=== PATIENT | female | born 1945 | race African-American/Black ===

== ENCOUNTER → 2019-02-13 | Day surgery (SDC) | payer BC, OTHER ==
[~2019-02-13] MED LIST: ALEN70TA3 PO; ASPI-630 PO; ATOR20TA58 PO; BIMA2.5D EACHEYE; BRIM5DRO2 OP; CHOL200027 PO; DORZ10DR6 EACHEYE; HYDROmorphone 2 MG/ML VIAL IV PRN; INSU100I13 SQ; INSU100I17 SQ; IV NORMAL SALINE 1000ML BAG 1,000 ML IV SCH; IV RINGERS,LACTATED 1000ML 1,000 ML IV SCH; LIDOCAINE 2% PF 5 ML VIAL. ONE; LOSA1TAB7 PO; METO-239 PO; MORPHINE SULFATE 2 MG/ML VIAL. IV PRN; MV-M1TAB8 PO; OMEP20CA5 PO; ONDANSETRON PF 4 MG/2 ML VIAL. IV PRN; PANCRELIPASE; PROCHLORPERAZINE 10 MG/2 ML VIAL. IV PRN; PROPOFOL 20 ML IV ONE; PROPOFOL 40 ML IV ONE; fentaNYL PF VIAL 100 MCG/2 ML VIAL IV PRN
[2019-02-13 10:30] VITALS: BP 118/67
--- NOTE | 2019-02-14 00:55 | CONS ---
DATE OF CONSULTATION: 02/13/2019 REFERRING PHYSICIAN: Dr. Geraldine Gonzalez. HISTORY OF PRESENT ILLNESS: A 73-year-old female with past medical history significant for osteoporosis, hyperlipidemia, diabetes, hypertension is seen for interval colonoscopy. She has had diverticulosis in the pannus. There is a family history of colon cancer with her sister who is . There has been no melena or hematochezia. No change in appetite. Weight and appetite are stable. She also noted increased heartburn with a hiatal hernia in the past. She has taken omeprazole 20 mg daily with modest improvement. With continued issues, she requests additional evaluation. PAST MEDICAL HISTORY: Osteoporosis, hyperlipidemia, hypertension, diabetes. ALLERGIES: None. MEDICATIONS: Include Fosamax, aspirin, atorvastatin, Lumigan, insulin, losartan, metoprolol, omeprazole, Creon. FAMILY AND SOCIAL HISTORY: Significant for colorectal cancer with her sister, diabetes in multiple family members, former smoker and drinker. PAST SURGICAL HISTORY: Significant for cataract surgery and tubal ligation. REVIEW OF SYSTEMS: Per records. PHYSICAL EXAMINATION: GENERAL: Reveals a well-nourished, well-developed female, who is alert and cooperative, in no acute distress. VITAL SIGNS: Temperature 98.4, pulse 86, respiratory rate 16. HEENT: Normocephalic and atraumatic head. Pupils and extraocular muscles are not tested. Sclerae anicteric. NECK: Supple. LUNGS: Clear. CARDIOVASCULAR: Reveals an S1, S2 without S3, S4 or appreciable murmur. ABDOMEN: Soft abdomen, normal bowel sounds without appreciable hepatosplenomegaly. EXTREMITIES: Reveals no cyanosis, clubbing, edema. IMPRESSION: 1. Colorectal screening with a family history of colon cancer is recommended at this time. Risks and benefits were discussed with the patient including risk of hemorrhage and perforation, who is willing to proceed. 2. Intractable reflux, hiatal hernia on PPI therapy. Differential includes Conrad's, achalasia, malignancy. We will recommend upper endoscopy. Risks and benefits were discussed with the patient. She is willing to proceed with upper endoscopy. JAYNE FERMIN MD DR: LIDIA/sage JOB#: [id number] / [id number]
--- NOTE | 2019-02-16 15:06 | PATHOLOGY ---
[facility] Accession Number: [id number] . 01 Material submitted: . esophagus - ESOPHAGEAL BIOPSIES . 01 Clinical history: . Colon screening, GERD, family history of colon cancer . 02 Diagnosis: Esophagus, biopsies: - Fragments of mildly hyperplastic squamous epithelium without significant inflammation. - No columnar epithelium identified. (SKM:rosie; 02/16/2019) QMS/02/16/2019 . 02 Electronically signed: . Bertram Paulino MD, Pathologist NPI- [id number] . 01 Gross description: . The specimen is received in formalin, labeled "Ej, Tona, esophageal biopsies" and consists of 4 translucent fragments of pink-nesbitt tissue measuring between 0.3 x 0.2 cm and 0.6 x 0.4 cm. They are entirely submitted in A1. (SDY; 02/13/2019) SYU/SYU . 02 Pathologist provided ICD-10: K21.9 . 02 CPT . 295452 Specimen Comment: A courtesy copy of this report has been sent to Specimen Comment: [phone], . Specimen Comment: Report sent to / DR HORN Performed at: 01 [facility] [address], [place] [id number] MD Dick Milner MD Phone: [phone] Performed at: 02 [facility] [address] [place], [place] [id number] MD Efrain Mckeon MD Phone: [phone]
== END | disposition home or self-care (01) ==
LOC: SURG 08:15
PROVIDERS: ATTEND Internal Medicine Gastroenterology
DX: Z12.11 Encounter for screening for malignant neoplasm of colon (principal); K57.30 Diverticulosis of large intestine without perforation or abscess without bleeding; K64.0 First degree hemorrhoids; K21.0 Gastro-esophageal reflux disease with esophagitis; K44.9 Diaphragmatic hernia without obstruction or gangrene; E78.5 Hyperlipidemia, unspecified; E11.9 Type 2 diabetes mellitus without complications; I10 Essential (primary) hypertension; M81.0 Age-related osteoporosis without current pathological fracture; Z79.82 Long term (current) use of aspirin; Z79.899 Other long term (current) drug therapy; Z79.84 Long term (current) use of oral hypoglycemic drugs; Z87.891 Personal history of nicotine dependence; Z72.89 Other problems related to lifestyle; Z98.51 Tubal ligation status; Z98.42 Cataract extraction status, left eye; Z98.41 Cataract extraction status, right eye; Z96.1 Presence of intraocular lens
CPT/HCPCS: 43239; 88305; G0121; J2001; J2704; 45378

== ENCOUNTER → 2019-05-27 | Outpatient (CLI) | payer BC ==
[2019-02-13 10:30] VITALS: BP 118/67
[~2019-05-27] MED LIST changes: -HYDROmorphone 2 MG/ML VIAL IV PRN; -IV NORMAL SALINE 1000ML BAG 1,000 ML IV SCH; -IV RINGERS,LACTATED 1000ML 1,000 ML IV SCH; -LIDOCAINE 2% PF 5 ML VIAL. ONE; -MORPHINE SULFATE 2 MG/ML VIAL. IV PRN; -ONDANSETRON PF 4 MG/2 ML VIAL. IV PRN; -PROCHLORPERAZINE 10 MG/2 ML VIAL. IV PRN; -PROPOFOL 20 ML IV ONE; -PROPOFOL 40 ML IV ONE; -fentaNYL PF VIAL 100 MCG/2 ML VIAL IV PRN
--- NOTE | 2019-05-27 13:28 | KCIC ---
Bone densitometry 05/27/2019 1:13 PM Indication: Post menopausal patient. Disorder of bone density and structure. Comparison Study: None available. Discussion: Bone Densitometry was performed with dual photon absorption of the lumbar spine and proximal left femur. Lumbar Spine: Bone average density is 0.915g/cm2 for L1-L4. T-Score is -1.2. Proximal left femur: Bone average density is 0.758g/cm2. T-Score is -1.5. IMPRESSION: Osteopenia. Note: Definitions established by the World Health Organization: Normal: T-score is -1.0 or above. Osteopenia: T-score is between -1.0 and -2.5. Osteoporosis: T-score is -2.5 or below. Electronically signed by: Len Stevens MD (05/27/2019 1:25 PM) [facility]
== END | disposition home or self-care (01) ==
LOC: KCIC DEXA 12:57
PROVIDERS: ATTEND Family Medicine
DX: M85.89 Other specified disorders of bone density and structure, multiple sites (principal)
CPT/HCPCS: 77080

== ENCOUNTER 2019-10-01 11:06 | Emergency (ER) | payer BC ==
[~2019-10-01] VITALS: Ht 157.5 cm; Wt 57.6 kg
[2019-10-01] MEDS ORDERED: fentaNYL PF VIAL 100 MCG/2 ML VIAL IVP ONE (12:15)
--- NOTE | 2019-10-01 12:25 | PHYS DOC ---
Past Medical History Past Medical History: Diabetes-Type II, High Cholesterol, Hypertension Additional Past Medical Histor: osteoporosis, CKD Past Surgical History: No Surgical History Additional Past Surgical Histo: unknown Alcohol Use: None Drug Use: None Adult General Chief Complaint Chief Complaint: HEADACHE HPI HPI Patient is a 73 year old female with history of hypertension, dyslipidemia, diabetes mellitus and chronic renal insufficiency who presents with complaining of headache. Patient complaining of left parietal/occipital headache for the last 3 days as a constant sharp pain and rated her pain 10 over 10 patient denies nausea and vomiting, neck pain, blurred vision, chest pain and shortness of breath, focal neuro deficit, fever and chills, history of previous episodes of headache or head injury. Patient states she took Tylenol without improvement of her pain. Patient seen at urgent care and was told to come to ER. Patient did not take her blood pressure medication today. Review of Systems Review of Systems Constitutional: Denies fever or chills [] Eyes: Denies change in visual acuity, redness, or eye pain [] HENT: Denies nasal congestion or sore throat [] Respiratory: Denies cough or shortness of breath [] Cardiovascular: No additional information not addressed in HPI [] GI: Denies abdominal pain, nausea, vomiting, bloody stools or diarrhea [] : Denies dysuria or hematuria [] Musculoskeletal: Denies back pain or joint pain [] Integument: Denies rash or skin lesions [] Neurologic: Reports headache, denies focal weakness or sensory changes [] Endocrine: Denies polyuria or polydipsia [] All other systems were reviewed and found to be within normal limits, except as documented in this note. Current Medications Current Medications Current Medications Medications (Trade) Dose Ordered Sig/Mary Start Time Stop Time Status Last Admin Dose Admin Fentanyl Citrate (Fentanyl 2ml Vial) 50 mcg 1X ONCE 10/01/19 12:15 10/01/19 12:16 DC 10/01/19 12:55 50 MCG Allergies Allergies Allergies Coded Allergies Type Severity Reaction Last Updated Verified No Known Drug Allergies 02/13/19 No Physical Exam Physical Exam Constitutional: Well developed, well nourished, mild distress, non-toxic appearance. [] HENT: Normocephalic, atraumatic, bilateral external ears normal, oropharynx moist, no oral exudates, nose normal. [] Eyes: PERRLA, EOMI, conjunctiva normal, no discharge. [] Neck: Normal range of motion, no tenderness, supple, no stridor. [] Cardiovascular:Heart rate regular rhythm, no murmur [] Lungs & Thorax: Bilateral breath sounds clear to auscultation [] Abdomen: Bowel sounds normal, soft, no tenderness, no masses, no pulsatile masses. [] Skin: Warm, dry, no erythema, no rash. [] Back: No tenderness, no CVA tenderness. [] Extremities: No tenderness, no cyanosis, no clubbing, ROM intact, no edema. [] Neurologic: Alert and oriented X 3, normal motor function, normal sensory function, no focal deficits noted. [] Psychologic: Affect normal, judgement normal, mood normal. [] Current Patient Data Vital Signs Vital Signs Date Time Temp Pulse Resp B/P (MAP) Pulse Ox O2 Delivery O2 Flow Rate FiO2 10/01/19 12:55 20 10/01/19 11:45 98.5 80 179/80 (113) 100 Room Air 98.5 Lab Values Laboratory Tests Test 10/01/19 13:10 White Blood Count 3.2 x10^3/uL (4.0-11.0) L Red Blood Count 4.31 x10^6/uL (3.50-5.40) Hemoglobin 12.7 g/dL (12.0-15.5) Hematocrit 38.9 % (36.0-47.0) Mean Corpuscular Volume 90 fL (79-100) Mean Corpuscular Hemoglobin 29 pg (25-35) Mean Corpuscular Hemoglobin Concent 33 g/dL (31-37) Red Cell Distribution Width 13.8 % (11.5-14.5) Platelet Count 196 x10^3/uL (140-400) Neutrophils (%) (Auto) 39 % (31-73) Lymphocytes (%) (Auto) 45 % (24-48) Monocytes (%) (Auto) 11 % (0-9) H Eosinophils (%) (Auto) 5 % (0-3) H Basophils (%) (Auto) 0 % (0-3) Neutrophils # (Auto) 1.2 x10^3/uL (1.8-7.7) L Lymphocytes # (Auto) 1.4 x10^3/uL (1.0-4.8) Monocytes # (Auto) 0.3 x10^3/uL (0.0-1.1) Eosinophils # (Auto) 0.2 x10^3/uL (0.0-0.7) Basophils # (Auto) 0.0 x10^3/uL (0.0-0.2) Sodium Level 143 mmol/L (136-145) Potassium Level 4.0 mmol/L (3.5-5.1) Chloride Level 111 mmol/L (98-107) H Carbon Dioxide Level 21 mmol/L (21-32) Anion Gap 11 (6-14) Blood Urea Nitrogen 14 mg/dL (7-20) Creatinine 1.3 mg/dL (0.6-1.0) H Estimated GFR (Cockcroft-Gault) 48.3 BUN/Creatinine Ratio 11 (6-20) Glucose Level 201 mg/dL (70-99) H Calcium Level 8.7 mg/dL (8.5-10.1) Total Bilirubin 0.5 mg/dL (0.2-1.0) Aspartate Amino Transferase (AST) 22 U/L (15-37) Alanine Aminotransferase (ALT) 25 U/L (14-59) Alkaline Phosphatase 78 U/L (46-116) Total Protein 7.5 g/dL (6.4-8.2) Albumin 3.9 g/dL (3.4-5.0) Albumin/Globulin Ratio 1.1 (1.0-1.7) Laboratory Tests 10/01/19 13:10 Laboratory Tests 10/01/19 13:10 EKG EKG [] Radiology/Procedures Radiology/Procedures [][facility] [address] [place] [address] IMAGING REPORT Signed PATIENT: SHIRLEY TORRES ACCOUNT: [id number] : 1945 LOCATION: ER AGE: 73 SEX: F EXAM STATUS: REG ER ORD. PHYSICIAN: JUDY CHOE MD REASON: headache without history of headache PROCEDURE: CT HEAD WO CONTRAST CT HEAD WO CONTRAST Clinical indications: Headache. COMPARISON: March 08, 2014. Technique: Noncontrast axial cross sectional scanning of the head was performed. PQRS compliance Statement One or more of the following individualized dose reduction techniques were utilized for this study: 1. Automated exposure control 2. Adjustment of the mA and/or kV according to patient size 3. Use of iterative reconstruction technique Findings: No acute intracranial hemorrhage or midline shift or mass-effect or hydrocephalus or extra-axial fluid collection is seen. No focal hypodense area or sulci effacement is seen to indicate an acute infarct or edema radiographically. No skull fracture or pneumocephalus is seen. An old fracture of the right orbital floor is evident. No opacification of the mastoid sinuses or the middle ear cavities or the paranasal sinuses is seen. The maxillary sinuses are not completely seen in this study. Impression: No acute intracranial abnormality is seen. Electronically signed by: Navneet Quinteros MD (10/01/2019 12:57 PM) [facility] DICTATED and SIGNED BY: NAVNEET QUINTEROS MD DATE: 10/01/19 1257 Course & Med Decision Making Course & Med Decision Making Pertinent Labs and Imaging studies reviewed. (See chart for details) I've spoken with the patient and/or caregivers. I've explained the patient's condition, diagnosis and treatment plan based on information available to me at this time. I've answered the patient's and/or caregivers questions and addressed any concerns. The patient and/or caregivers have a good understanding the patient's diagnosis, condition and treatment plan as can be expected at this point. Vital signs have been stabilized. The patient's condition is stable for discharge from the emergency department. The patient will pursue further outpatient evaluation with her primary care provider or other designated consulting physician as outlined in the discharge instructions. Patient and/or caregivers are agreeable to this plan of care and follow-up instructions have been explained in detail. The patient and/or caregivers have received these instructions in written format and expressed understanding of these discharge instructions. The patient and her caregivers are aware that if any significant change in condition or worsening of symptoms should prompt him to immediately return to this of the closest emergency depart ment. If an emergent department is not readily available I would encourage him to call 911. Jesus Disclaimer Jesus Disclaimer This electronic medical record was generated, in whole or in part, using a voice recognition dictation system. Departure Departure Impression: Primary Impression: Headache Additional Impressions: Accelerated hypertension Renal insufficiency Hyperglycemia Leukopenia Disposition: HOME, SELF-CARE (@1350) Condition: IMPROVED Referrals: YENI HORN MD (PCP) Patient Instructions: General Headache Without Cause Additional Instructions: Drink plenty of liquids Follow-up with your primary care physician in 3-5 days Return to ER if not getting better Scripts Acetaminophen With Codeine (TYLENOL WITH CODEINE #3 TABLET) 1 Each Tablet 1 TAB PO PRN Q6HRS PRN for PAIN, #10 TAB Prov: JUDY CHOE MD 10/01/19 Problem Qualifiers Primary Impression: Headache Headache type: unspecified Headache chronicity pattern: unspecified pattern Intractability: not intractable Qualified Codes: R51 - Headache Additional Impressions: Leukopenia Leukopenia type: unspecified Qualified Codes: D72.819 - Decreased white blood cell count, unspecified JUDY CHOE MD Oct 01, 2019 12:25
--- NOTE | 2019-10-01 13:00 | RAD ---
CT HEAD WO CONTRAST Clinical indications: Headache. COMPARISON: March 08, 2014. Technique: Noncontrast axial cross sectional scanning of the head was performed. PQRS compliance Statement One or more of the following individualized dose reduction techniques were utilized for this study: 1. Automated exposure control 2. Adjustment of the mA and/or kV according to patient size 3. Use of iterative reconstruction technique Findings: No acute intracranial hemorrhage or midline shift or mass-effect or hydrocephalus or extra-axial fluid collection is seen. No focal hypodense area or sulci effacement is seen to indicate an acute infarct or edema radiographically. No skull fracture or pneumocephalus is seen. An old fracture of the right orbital floor is evident. No opacification of the mastoid sinuses or the middle ear cavities or the paranasal sinuses is seen. The maxillary sinuses are not completely seen in this study. Impression: No acute intracranial abnormality is seen. Electronically signed by: Guillermo Quinteros MD (10/01/2019 12:57 PM) [facility]
[2019-10-01 13:15] LABS: BASO % 0 % (0-3); EOS # 0.2 x10^3/uL (0.0-0.7); EOS % 5 % (0-3); HEMATOCRIT 38.9 % (36.0-47.0); HEMOGLOBIN 12.7 g/dL (12.0-15.5); LYMPH # 1.4 x10^3/uL (1.0-4.8); LYMPH % 45 % (24-48); MEAN CORPUSCULAR HEMOGLOBIN 29 pg (25-35); MEAN CORPUSCULAR HGB CONC 33 g/dL (31-37); MEAN CORPUSCULAR VOLUME 90 fL (79-100); MONO # 0.3 x10^3/uL (0.0-1.1); MONO % 11 % (0-9); NEUT # 1.2 x10^3/uL (1.8-7.7); NEUT % 39 % (31-73); PLATELET COUNT 196 x10^3/uL (140-400); RED BLOOD COUNT 4.31 x10^6/uL (3.50-5.40); RED CELL DISTRIBUTION WIDTH 13.8 % (11.5-14.5); WHITE BLOOD COUNT 3.2 x10^3/uL (4.0-11.0)
[2019-10-01 13:29] LABS: CALCIUM 8.7 mg/dL (8.5-10.1); CREATININE 1.3 mg/dL (0.6-1.0); GFR 48.3
[2019-10-01 13:33] LABS: ALBUMIN 3.9 g/dL (3.4-5.0); ALBUMIN/GLOBULIN RATIO 1.1 (1.0-1.7); TOTAL BILIRUBIN 0.5 mg/dL (0.2-1.0); TOTAL PROTEIN 7.5 g/dL (6.4-8.2)
[2019-10-01 13:44] VITALS: BP 148/72
[2019-10-01] MEDS ORDERED: ACET-704 PO ×2 (13:51→13:58)
== END 2019-10-01 14:02 | disposition home or self-care (01) ==
LOC: ER 11:06
DX: R51 Headache (principal); I10 Essential (primary) hypertension; D72.819 Decreased white blood cell count, unspecified; E78.00 Pure hypercholesterolemia, unspecified; E11.65 Type 2 diabetes mellitus with hyperglycemia; E11.22 Type 2 diabetes mellitus with diabetic chronic kidney disease; I12.9 Hypertensive chronic kidney disease with stage 1 through stage 4 chronic kidney disease, or unspecified chronic kidney disease; N18.9 Chronic kidney disease, unspecified
CPT/HCPCS: 36415; 70450; 80053; 85025; 96374; 99285; J3010

== ENCOUNTER → 2019-10-16 | Outpatient (CLI) | payer BC ==
[2019-10-01 13:44] VITALS: BP 148/72
[~2019-10-16] MED LIST changes: +ACET-704 PO
--- NOTE | 2019-10-16 15:06 | KCIC ---
MRI Brain without contrast History: Intractable headache, new onset right-sided headaches for about 3 weeks Technique: Multiplanar, multisequential noncontrast MR imaging was performed of the brain. Comparison: July 05, 2011 Findings: There is no evidence of recent infarct or cytotoxic edema. Ventricular size is stable, proportionate to the sulcal spaces. There is mild supratentorial involutional change somewhat greater of parietal lobes.There is no significant midline shift, intraaxial mass effect, or focal abnormal extra-axial fluid collection. There is again scattered overall mild T2 and FLAIR hyperintense abnormality of the supratentorial parenchyma bilaterally overall fairly similar. There is no significant hemosiderin deposition of the brain parenchyma. There is preservation of the major intracranial flow-voids at the skull base. The mastoid air cells are aerated. The cerebellar tonsils are normal in location. There is no significant abnormality of the pineal gland or pituitary gland. There is [id number] left and mild right ethmoid air cell mucosal thickening. There has been lens surgery bilaterally. There is preserved marrow signal of the clivus. Impression: 1. There is no evidence of recent infarct or new intracranial mass effect. There is again scattered overall mild T2 and FLAIR hyperintense signal abnormality of the supratentorial parenchyma bilaterally. Nonspecific findings are more commonly due to chronic microvascular ischemic disease in a patient this age. There is mild supratentorial involutional change somewhat greater of the parietal lobes. Electronically signed by: Lavelle Rdz MD (10/16/2019 3:03 PM) [id number]
== END | disposition home or self-care (01) ==
LOC: KCIC MRI 11:35
PROVIDERS: ATTEND Family Medicine
DX: R51 Headache (principal); J34.89 Other specified disorders of nose and nasal sinuses
CPT/HCPCS: 70551

== ENCOUNTER → 2020-12-09 | Outpatient (CLI) | payer MEDICARE ==
[~2020-12-09] MED LIST changes: +CONTRAST GIVEN. MC PRN; +IOHEXOL 240 MG/ML 50ML VIAL. PO ONE; +IOHEXOL 300 MG/ML 100ML VIAL. IV ONE
--- NOTE | 2020-12-09 15:20 | KCIC ---
CT PELVIS W Indication: Reason: Sacral,anal pain, hurts to sit, since September 2020 / Spl. Instructions: 89mL Omni 300 / History: No recent colonoscopy per pt. Technique: CT scan of the pelvis was performed following the administration of oral and nonionic intravenous contrast. One or more of the following dose reduction techniques were utilized: *Automated exposure control (AEC) *Adjustment of mA and/or kV according to patient size *Use of iterative reconstruction technique *CT scan done according to ALARA, or ALARA/IMAGE GENTLY FINDINGS: There is suggestion of mild mural thickening involving the distal rectum which is nonspecific. Visualized loops of bowel in the pelvis are otherwise within normal limits. Urinary bladder is normal in appearance. No pelvic lymphadenopathy or ascites is seen. Mild vascular calcifications are noted. Osseous structures are intact with mild degenerative changes noted. No displaced acute fracture is seen. Nondisplaced fractures may be occult on CT imaging. IMPRESSION: There is suggestion of mild mural thickening involving the distal rectum which is nonspecific but may represent proctitis. Neoplastic considerations are not excluded however. MTDD
== END ==
LOC: KCIC CT 09:16
PROVIDERS: ATTEND Internal Medicine Gastroenterology
DX: M53.3 Sacrococcygeal disorders, not elsewhere classified (principal); K62.89 Other specified diseases of anus and rectum; I70.90 Unspecified atherosclerosis; M16.9 Osteoarthritis of hip, unspecified
CPT/HCPCS: 72193; 82565; Q9966; Q9967

== ENCOUNTER → 2020-12-21 | Outpatient (CLI) | payer MEDICARE ==
[~2020-12-21] MED LIST changes: -CONTRAST GIVEN. MC PRN; -IOHEXOL 240 MG/ML 50ML VIAL. PO ONE; -IOHEXOL 300 MG/ML 100ML VIAL. IV ONE
== END ==
LOC: LAB 11:05
PROVIDERS: ATTEND Internal Medicine Gastroenterology
DX: Z01.812 Encounter for preprocedural laboratory examination (principal); R93.5 Abnormal findings on diagnostic imaging of other abdominal regions, including retroperitoneum; Z20.822 Contact with and (suspected) exposure to COVID-19
CPT/HCPCS: U0003

== ENCOUNTER → 2020-12-23 | Day surgery (SDC) | payer MEDICARE ==
[~2020-12-23] MED LIST changes: +AMLO-187 PO; +ATOR10TA60 PO; +BRIN10DR EACHEYE; +FAMO40TA4 PO; +HYDROmorphone 2 MG/ML VIAL IVP PRN; +HYPR10GE OP; +INSU100I30 SQ; +INSU200I SQ; +IV NORMAL SALINE 1000ML BAG 1,000 ML IV ONE; +IV RINGERS,LACTATED 1000ML 1,000 ML IV SCH; +LATA2.5D2 OU; +LIDOCAINE 2% PF 5 ML VIAL. ONE; +LIPA1TAB4 PO; +METO100T5 PO; +MORPHINE SULFATE 2 MG/ML VIAL. IVP PRN; +PRED5DRO20 RIGHTEYE; +PROCHLORPERAZINE 10 MG/2 ML VIAL. IVP PRN; +PROPOFOL 10 MG/ML (20ML) VIAL. IV ONE; +VENTOLIN HFA18 GM INH; +fentaNYL PF VIAL 100 MCG/2 ML VIAL IVP PRN
[2020-12-23 10:05] VITALS: BP 145/74
== END | disposition home or self-care (01) ==
LOC: SURG 07:54
PROVIDERS: ATTEND Internal Medicine Gastroenterology
DX: R10.9 Unspecified abdominal pain (principal); R93.3 Abnormal findings on diagnostic imaging of other parts of digestive tract; K64.0 First degree hemorrhoids; I25.10 Atherosclerotic heart disease of native coronary artery without angina pectoris; E78.00 Pure hypercholesterolemia, unspecified; J45.909 Unspecified asthma, uncomplicated; I12.9 Hypertensive chronic kidney disease with stage 1 through stage 4 chronic kidney disease, or unspecified chronic kidney disease; N18.9 Chronic kidney disease, unspecified; K21.9 Gastro-esophageal reflux disease without esophagitis; E11.22 Type 2 diabetes mellitus with diabetic chronic kidney disease; M81.0 Age-related osteoporosis without current pathological fracture; F41.9 Anxiety disorder, unspecified; Z98.51 Tubal ligation status; Z98.890 Other specified postprocedural states; Z87.891 Personal history of nicotine dependence; Z79.82 Long term (current) use of aspirin; Z79.4 Long term (current) use of insulin; Z79.899 Other long term (current) drug therapy
CPT/HCPCS: 45378; J2704

== ENCOUNTER → 2021-01-05 | Outpatient (CLI) | payer MEDICARE ==
[2020-12-23 10:05] VITALS: BP 145/74
[~2021-01-05] MED LIST changes: -AMLO-187 PO; -ATOR10TA60 PO; -BRIN10DR EACHEYE; -FAMO40TA4 PO; -HYDROmorphone 2 MG/ML VIAL IVP PRN; -HYPR10GE OP; -INSU100I30 SQ; -INSU200I SQ; -IV NORMAL SALINE 1000ML BAG 1,000 ML IV ONE; -IV RINGERS,LACTATED 1000ML 1,000 ML IV SCH; -LATA2.5D2 OU; -LIDOCAINE 2% PF 5 ML VIAL. ONE; -LIPA1TAB4 PO; -METO100T5 PO; -MORPHINE SULFATE 2 MG/ML VIAL. IVP PRN; -PRED5DRO20 RIGHTEYE; -PROCHLORPERAZINE 10 MG/2 ML VIAL. IVP PRN; -PROPOFOL 10 MG/ML (20ML) VIAL. IV ONE; -VENTOLIN HFA18 GM INH; -fentaNYL PF VIAL 100 MCG/2 ML VIAL IVP PRN
--- NOTE | 2021-01-05 13:34 | KCIC ---
EXAM: Sacrum and coccyx, 3 views. HISTORY: Coccydynia. COMPARISON: None. FINDINGS: 3 views of the sacrum and coccyx are obtained. There is no fracture, dislocation or subluxa tion. There is degenerative subchondral sclerosis involving the sacroiliac joints. The pubis symphysi s is intact. There is a suspected phlebolith overlying the right hemipelvis. IMPRESSION: No acute osseous finding. Electronically signed by: Emelina Carmen MD (01/05/2021 1:32 PM) [id number]
== END ==
LOC: KCIC 13:01
PROVIDERS: ATTEND Family Medicine
DX: M46.1 Sacroiliitis, not elsewhere classified (principal); I87.8 Other specified disorders of veins
CPT/HCPCS: 72220

== ENCOUNTER → 2021-03-09 | Outpatient (CLI) | payer MEDICARE ==
[2020-12-23 10:05] VITALS: BP 145/74
[~2021-03-09] MED LIST changes: +AMLO-187 PO; +ATOR10TA60 PO; +BRIN10DR EACHEYE; +FAMO40TA4 PO; +HYPR10GE OP; +INSU100I30 SQ; +INSU200I SQ; +LATA2.5D2 OU; +LIPA1TAB4 PO; +METO100T5 PO; +PRED5DRO20 RIGHTEYE; +VENTOLIN HFA18 GM INH
--- NOTE | 2021-03-09 12:12 | PDOC1 ---
INITIAL PAIN CONSULT DATE OF SERVICE: DOS: DATE: 03/09/21 TIME: 12:02 CHIEF COMPLAINT: Chief Complaint: Tailbone pain HISTORY OF PRESENT ILLNESS: 75-year-old female presents history of pain in the tailbone after fall in August 2020 patient reports she lost consciousness is not sure how she fell but a few days after the fall pain began to increase in her tailbone when she was sitting and standing and changing positions and has been waking her from sleep patient reports is at times gotten slightly worse especially with sitting and putting pressure on it patient reports is better when she is standing and walking but still present much worse with sitting for more than about 5 to 10 minutes riding in the car however is not as uncomfortable but it slightly harder surface chairs and more upright positions tend to exacerbate the pain as well. Patient reports he finds her self shifting from right side to left side to try to get the pain off of her tailbone and sacrum when she is sitting. Patient reports is generally better with laying down generally is not awaken her from sleep at night does not affect her bowel bladder control or ability to walk. Patient has had some therapy in the past and is doing some stretching and strength exercises from this but is not relieving the pain in the tailbone itself. Patient been taking Tylenol [id number] as she is not taking NSAIDs on the basis of her nuclear unit operator advice secondary to her diabetes. Patient reports has not had any other treatments as far as chiropractic treatments or interventional treatments but is still doing exercise daily trying to stretch the tailbone area. Patient reports also she is not using a donut to sit on and we recommended this today to her as well. Patient rates her disability rating 0-10 10 being the worst is a 5 with him home responsibilities and self-care 7 with recreation social activity 7 with life support activities. Patient scribes pain is throbbing and aching again worse with sitting and with pressure on the tailbone itself. Patient did have plain films of the sacrum and coccyx showing no osseous acute findings no fracture dislocation or subluxation. PAST MEDICAL HISTORY: PMH: Diabetes, hypertension, arthritis, shortness of breath PREVIOUS SURGERIES: Past Surgical Hx: Surgery for lung collapse in the 1970s CURRENT MEDICATIONS: Current Meds: Active Scripts Medications Dose Route/Sig Max Daily Dose Days Date Category Dose Instructions Tresiba Flextouch U-100 (Insulin Degludec) 100 Unit/1 Ml Insuln.pen 16 Unit SQ DAILY08 03/09/21 Reported Prednisolone Acet 1% Eye Drop (Prednisolone Acetate/Pf) 5 Ml Drops.susp 1 Drop RIGHTEYE QID 30 03/09/21 Reported Systane Gel (Hypromellose) 10 Gm Gel..gram. 0.25 Inch OP PRN Q4HRS PRN 03/09/21 Reported Toprol Xl (Metoprolol Succinate) 100 Mg Tab.er.24h 1 Tab PO DAILY 30 03/09/21 Reported Xalatan (Latanoprost) 2.5 Ml Drops 1 Drop OU QHS 03/09/21 Reported Humalog Kwikpen (Insulin Lispro) 200 Unit/1 Ml Insuln.pen 1 Unit SQ TIDAC MDD 30 units 03/09/21 Reported Take 8 units plus sliding scale with breakfast Take 6 units plus sliding scale with lunch Take 8 units plus sliding scale with dinner Famotidine 40 Mg Tablet 40 Mg PO DAILY 03/09/21 Reported Viokace 20,880-78,300 Units Tb (Lipase/Protease/Amylase) 1 Each Tablet 2 Tab PO DAILY 30 03/09/21 Reported Combigan Eye Drops (Brimonidine Tartrate/Timolol) 5 Ml Drops 5 Ml OP BID 03/09/21 Reported Azopt (Brinzolamide) 10 Ml Drops.susp 1 Drop EACHEYE TID 03/09/21 Reported Atorvastatin Calcium 10 Mg Tablet 1 Tab PO DAILY 03/09/21 Reported Amlodipine Besylate 10 Mg Tablet 10 Mg PO DAILY 03/09/21 Reported Ventolin Hfa Inhaler (Albuterol Sulfate) 18 Gm Hfa.aer.ad 2 Puff INH Q4HRS PRN 03/09/21 Reported [creon 2476-120 BID] 11/24/14 Reported Aspirin 81 Mg Tab.chew 1 Tab PO DAILY 11/24/14 Reported ALLERGIES; Allergies: Coded Allergies: No Known Drug Allergies (Unverified , 12/23/20) FAMILY HISTORY: Family Hx: Diabetes and cancers SOCIAL HISTORY: Social Hx: Patient does not mike alcohol does not smoke or use any illegal illicit or recreational drugs is lives locally in [facility] and reports that she is retired. REVIEW OF SYSTEMS: ROS: Positive for those items mentioned in history of present illness, all systems are reviewed, otherwise negative ,and are complete full and well-documented on patient's chart. PHYSICAL EXAM: VS: Blood pressure is 147/70 pulse 68 respirations 18 temperature 98.0 F height is 5 feet 3 inches weight is 155 pounds PE: PHYSICAL EXAMINATION: GENERAL: The patient is awake, alert, oriented, appropriate, very pleasant demeanor HEENT: Shows normocephalic, atraumatic. Extraocular movements are intact and symmetrical. Oral cavity: Mucous membranes moist and pink. NECK: Shows anterior throat supple without palpable lymphadenopathy noted. Swallow reflex symmetrical. CHEST: Shows normal on inspection. Breath sounds are clear bilaterally, distant but no rales rhonchi wheezes auscultated. HEART: Shows S1, S2 clear. No murmurs auscultated. ABDOMEN: Soft, nontender, nondistended, obese. No palpable organomegaly is noted. No rebound or guarding demonstrated. BACK: Shows spine grossly in the midline. Normal-appearing cervical lordotic curvature. There is increased thoracic kyphosis, some flattening of the lumbar lordotic curvature. Lumbar paraspinous muscles show symmetrical on inspection, on palpation shows some moderate tenderness diffusely throughout the upper, m iddle and lower distribution of the paraspinous muscles bilaterally and also into the lower thoracic paraspinous musculature, firm and tender, but without specific trigger points, without radiation of pain. The patient has good rotational motion of the lumbar spine, both laterally as well as extension and flexion without significant difficulty. Palpation of the sacrum shows signi ficant tenderness the inferior aspect of the sacrum and the sacrococcygeal ligament very tender to palpation also over the coccyx itself without any obvious displacement but significantly tender with palpation without radiation. EXTREMITIES: Lower extremities show deep tendon reflexes 2+ in the patellar and tendo calcaneus tendons. Motor exam is 5 on a scale of 5 with right dorsif lexion, extension, quadriceps and hamstring flexion and 5/5 on the left. Peripheral pulses are 1+ posterior tibial. No peripheral edema is noted bilaterally. Lower extremities are warm and dry to touch, equal in color and appearance. Straight leg raise noted to be negative bilaterally. Gaenslen's and Angelo's maneuvers are negative bilaterally as well. The patient is able to stand, has difficulty with standing from a seated position with significant pain reported in the sacrum and coccyx once standing however pain is decreased to moderate extent. SKIN: Shows warm and dry, good turgor. No edema. No sores, rashes or bruising throughout. IMPRESSION: Impression: 75-year-old female with approximate 7-month history pain inferior aspect of the sacrum and coccyx consistent with coccydynia. Diabetes Hypertension Arthritis Plan: Options were discussed with the patient including continued therapies conservative medical management and interventional techniques. Patient would li ke to pursue interventional techniques as she is doing some stretching strength exercises already without significant improvement and is been taking Tylenol [id number] without significant improvement as well. Patient is unable to take NSAIDs secondary to her nuclear unit operator advice regarding her diabetes. We discussed a sacrococcygeal ligament injection using description as well as anatomical models to describe the procedure. Patient will wait for preauthorization with her insurance provider once this is obtained we will plan on sacrococcygeal ligament injection with fluoroscopic guidance. Meantime recommend patient getting a donut to sit on and try to support some of the pressure off of the coccyx itself. Patient understands and agrees. VANDANA DYSON MD March 09, 2021 12:12
== END | disposition home or self-care (01) ==
LOC: PNCL 10:31
PROVIDERS: ATTEND Anesthesiology
DX: M53.3 Sacrococcygeal disorders, not elsewhere classified (principal); I10 Essential (primary) hypertension; M19.90 Unspecified osteoarthritis, unspecified site; E78.00 Pure hypercholesterolemia, unspecified; I25.10 Atherosclerotic heart disease of native coronary artery without angina pectoris; I12.9 Hypertensive chronic kidney disease with stage 1 through stage 4 chronic kidney disease, or unspecified chronic kidney disease; E11.22 Type 2 diabetes mellitus with diabetic chronic kidney disease; N18.30 Chronic kidney disease, stage 3 unspecified; J45.909 Unspecified asthma, uncomplicated; K21.9 Gastro-esophageal reflux disease without esophagitis; Z98.51 Tubal ligation status; Z98.890 Other specified postprocedural states; Z79.82 Long term (current) use of aspirin; Z79.4 Long term (current) use of insulin; Z79.899 Other long term (current) drug therapy
CPT/HCPCS: G0463

== ENCOUNTER → 2021-03-23 | Outpatient (CLI) | payer MEDICARE ==
[2020-12-23 10:05] VITALS: BP 145/74
[~2021-03-23] MED LIST changes: +BUPIVACAINE MPF 0.25% 10 ML VIAL. ONE; +methylPREDNISolone ACETATE 40 MG/ML VIAL. ONE
--- NOTE | 2021-03-23 10:31 | PDOC ---
Progress Note - Pain Clinic Date of Service: DOS: DATE: 03/23/21 TIME: Diagnosis: Dx: Coccydynia History or Present Illness: HPI: 75-year-old female for follow-up status post initial evaluation preauthorization for sacrococcygeal ligament injection. Patient reports still significant pain in the tailbone and the coccyx mostly with sitting changing positions also some with standing and walking. Patient reports no significant decrease in pain at this time and she is waiting for preauthorization is obtained that now with her return provider like to proceed. Patient reports pain is aching and severe in the tailbone itself with sitting also changing positions patient rates as a 10 on scale 10 is worst average and least over the past week is a 10 today patient reports no new motor or sensory deficits no new bowel or bladder constitutional complaints. Physical Exam: VS: Blood pressure is 134/69 pulse 76 respirations 18 temperature 98.5 F weight is 150 pounds PE: PHYSICAL EXAMINATION: GENERAL: The patient is awake, alert, oriented, appropriate, very pleasant demeanor HEENT: Shows normocephalic, atraumatic. Extraocular movements are intact and symmetrical. Oral cavity: Mucous membranes moist and pink. NECK: Shows anterior throat supple without palpable lymphadenopathy noted. Swallow reflex symmetrical. CHEST: Shows normal on inspection. Breath sounds are clear bilaterally. HEART: Shows S1, S2 clear. No murmurs auscultated. ABDOMEN: Soft, nontender, nondistended, obese. No palpable organomegaly is noted. BACK: Shows spine grossly in the midline. Normal-appearing cervical lordotic curvature. There is slightly increased thoracic kyphosis, some minor flattening of the lumbar lordotic curvature. Lumbar paraspinous muscles show symmetrical on inspection, on palpation shows some moderate tenderness diffusely throughout the upper, middle and lower distribution of the paraspinous muscles, but without specific trigger points, without radiation of pain. The patient has good rotational motion of the lumbar spine, both laterally as well as extension and flexion without significant difficulty. EXTREMITIES: Lower extremities show deep tendon reflexes 2+ in the patellar and tendo calcaneus tendons. Motor exam is 5 on a scale of 5 with right dorsiflexion, extension, quadriceps and hamstring flexion and 5/5 on the left. Peripheral pulses are 1+ posterior tibial. No peripheral edema is noted bilaterally. Lower extremities are warm and dry to touch, equal in color and appearance. Patient is sacrum and coccyx shows significant tenderness over the sacrococcygeal junction with direct palpation even moderate palpation is significantly tender with the patient. Patient shows no radiation of pain however with palpation. SKIN: Shows warm and dry, good turgor. No edema. No sores, rashes or bruising throughout. Procedure: Procedure: Options discussed with the patient. Patient chart was reviewed as her current medication regimen updated current review of systems updated today as well. We will proceed with sacrococcygeal ligament injection today with fluoroscopic guidance. Risk were discussed including but not limited to bleeding infection possibility of intravascular injection sequelae spread local anesthetic numbness side effects steroid medication portals regarding pain control. Patient understands and wishes to proceed. Patient will return to clinic in approximate 2 weeks for follow-up, was counseled as to return appointment activity level and side effects to be aware of. Medication Injected: Med Injected: Patient in supine position under sterile prep and drape using C-arm fluoroscopic guidance patient's sacrococcygeal ligament was identified and using 1% lidocaine was anesthetized on the skin overlying the sacrococcygeal ligament. This time a 25-gauge needle 1/2 inch was used to enter the sacrococcygeal ligament with both AP and lateral views with the fluoroscopy without difficulty. At this time aspiration was noted to be negative and 0.5 cc of contrast was injected with good spread in the sacrococcygeal ligament without washout or uptake. At this time solution of 0.25% bupivacaine 2 cc and 40 mg Depo-Medrol was then injected. Needle was withdrawn and sterile bandage was applied. Patient tolerated the procedure well and had no complications. Condition at Discharge: Condition at Discharge: Condition at discharge stable, patient already procedure well and had no complications. VANDANA DYSON MD March 23, 2021 10:31
--- NOTE | 2021-03-23 10:32 | PDOC4 ---
PROCEDURE Procedure Patient was consented for sacrococcygeal ligament injection. risks were disc ussed including but not limited to bleeding infection possibility of intravascular injection sequelae spread of local anesthetic numbness side effects of steroid medication exposure to fluoroscopy and poor results regarding pain control. Patient understands wished to proceed. Patient in supine position under sterile prep and drape using C-arm fluoroscopic guidance patient's sacrococcygeal ligament was identified and using 1% lidocaine was anesthetized on the skin overlying the sacrococcygeal ligament. This time a 25-gauge needle 1/2 inch was used to enter the sacrococcygeal ligament with both AP and lateral views with the fluoroscopy without difficulty. At this time aspiration was noted to be negative and 0.5 cc of contrast was injected with good spread in the sacrococcygeal ligament without washout or uptake. At this time solution of 0.25% bupivacaine 2 cc and 40 mg Depo-Medrol was then injected. Needle was withdrawn and sterile bandage was applied. Patient tolerated the procedure well and had no complications. VANDANA DYSON MD March 23, 2021 10:32
== END | disposition home or self-care (01) ==
LOC: PNCL 09:26
PROVIDERS: ATTEND Anesthesiology
DX: M53.3 Sacrococcygeal disorders, not elsewhere classified (principal); I25.10 Atherosclerotic heart disease of native coronary artery without angina pectoris; E78.00 Pure hypercholesterolemia, unspecified; J45.909 Unspecified asthma, uncomplicated; K21.9 Gastro-esophageal reflux disease without esophagitis; I12.9 Hypertensive chronic kidney disease with stage 1 through stage 4 chronic kidney disease, or unspecified chronic kidney disease; N18.30 Chronic kidney disease, stage 3 unspecified; E11.9 Type 2 diabetes mellitus without complications; M81.0 Age-related osteoporosis without current pathological fracture; Z98.51 Tubal ligation status; Z98.890 Other specified postprocedural states; Z79.82 Long term (current) use of aspirin; Z79.4 Long term (current) use of insulin; Z79.899 Other long term (current) drug therapy; Z87.891 Personal history of nicotine dependence
CPT/HCPCS: 20605; 77002; J1030; J3490

== ENCOUNTER → 2021-04-06 | Outpatient (CLI) | payer MEDICARE ==
[2020-12-23 10:05] VITALS: BP 145/74
[~2021-04-06] MED LIST changes: -BUPIVACAINE MPF 0.25% 10 ML VIAL. ONE; -methylPREDNISolone ACETATE 40 MG/ML VIAL. ONE
--- NOTE | 2021-04-06 09:50 | PDOC ---
Progress Note - Pain Clinic Date of Service: DOS: DATE: 04/06/21 TIME: 09:47 Diagnosis: Dx: Coccydynia History or Present Illness: HPI: 75-year-old female returns for follow-up status post sacrococcygeal ligament injection. Patient reports about 75% improvement overall and is feeling much better with the ability to sit for long periods walking changing positions with much greater ease and comfort. Patient reports she is very pleased with her progress she is sleeping well at night doing activities at home walking greater distances and sitting for prolonged periods riding in the car more comfortably and overall doing much better. Patient reports her pain is a 7 on scale 10 is worse over the past week 6 on average 5 its least and is a 5 today patient reports a dull pain now it is not as sharp is aching and not radiating. Patient reports no new motor or sensory deficits no new bowel or bladder incontinence or other complaints. Physical Exam: VS: Blood pressure is 131/73 pulse 70 respirations 16 temperature 98.5 F height is 5 foot 2 inches weight is 49 PE: PHYSICAL EXAMINATION: GENERAL: The patient is awake, alert, oriented, appropriate, very pleasant in demeanor HEENT: Shows normocephalic, atraumatic. Extraocular movements are intact and symmetrical. NECK: Shows anterior throat supple without palpable lymphadenopathy noted. CHEST: Shows normal on inspection. Breath sounds are clear bilaterally. HEART: Shows S1, S2 clear. No murmurs auscultated. ABDOMEN: Soft, nontender, nondistended. BACK: Shows spine grossly in the midline. Normal-appearing cervical lordotic curvature. There is slightly increased thoracic kyphosis, some minor flattening of the lumbar lordotic curvature. Lumbar paraspinous muscles show symmetrical on inspection, on palpation shows some moderate tenderness diffusely throughout the upper, middle and lower distribution of the paraspinous muscles, but without specific trigger points, without radiation of pain. Only very mild tenderness over the sacrococcygeal junction with direct palpation much less severe as on previous exam. The patient has good rotational motion of the lumbar spine, both laterally as well as extension and flexion without significant difficulty. EXTREMITIES: Lower extremities show deep tendon reflexes 2+ in the patellar and tendo calcaneus tendons. Motor exam is 5 on a scale of 5 with right dorsiflexion, extension, quadriceps and hamstring flexion and 5/5 on the left. Peripheral pulses are 1+ posterior tibial. No peripheral edema is noted bilaterally. Lower extremities are warm and dry. SKIN: Shows warm and dry, good turgor. No edema. No sores, rashes or bruising throughout. Procedure: Procedure: Options discussed with patient. Patient chart was reviewed as her current medication regimen updated current review of systems updated today as well. We will hold on any further injections at this time as patient doing quite a bit better. Patient will continue with increased activity as tolerated if the pain begins to return we advised her to set up appointment for return for sacrococcygeal ligament injection if needed. Patient continue with activity as well as stretching and strength exercises we talked about getting pressure off of the sacrococcygeal junction as well with donuts and sitting cushion devices. Medication Injected: Med Injected: None Condition at Discharge: Condition at Discharge: Condition at discharge is stable. VANDANA DYSON MD Apr 06, 2021 09:50
== END | disposition home or self-care (01) ==
LOC: PNCL 09:20
PROVIDERS: ATTEND Anesthesiology
DX: M53.3 Sacrococcygeal disorders, not elsewhere classified (principal); I25.10 Atherosclerotic heart disease of native coronary artery without angina pectoris; E78.00 Pure hypercholesterolemia, unspecified; I12.9 Hypertensive chronic kidney disease with stage 1 through stage 4 chronic kidney disease, or unspecified chronic kidney disease; E11.22 Type 2 diabetes mellitus with diabetic chronic kidney disease; N18.30 Chronic kidney disease, stage 3 unspecified; K21.9 Gastro-esophageal reflux disease without esophagitis; M81.0 Age-related osteoporosis without current pathological fracture; Z98.51 Tubal ligation status; Z98.890 Other specified postprocedural states; Z79.82 Long term (current) use of aspirin; Z79.4 Long term (current) use of insulin; Z79.899 Other long term (current) drug therapy
CPT/HCPCS: 99212; G0463

== ENCOUNTER → 2021-08-25 | Outpatient (CLI) | payer MEDICARE ==
[2020-12-23 10:05] VITALS: BP 145/74
--- NOTE | 2021-08-25 11:01 | PDOC ---
Progress Note - Pain Clinic Date of Service: DOS: DATE: 08/25/21 TIME: 10:57 Diagnosis: Dx: Coccygodynia History or Present Illness: HPI: 75-year-old female returns for follow-up last seen April 06, 2021 patient did very well after a sacral coccygeal ligament injection on March 23 of this year with 100% improvement for several months patient reports about the last 3 to 4 weeks pain began to return gradually in the inferior aspect of the sacrum in the tailbone worse with sitting worse with change positions better with walking or standing but is been waking her from sleep once again, initially she did much better with distance walking doing household activities try with greater ease and comfort sleeping better as well. Patient reports pain is returning now in the inferior aspect of the sacrum and the coccyx as it was previously but without significant radiation. Patient has been taking [id number] Tylenol as well as occasional ibuprofen but without significant reduction in pain. Patient is doing some stretching of the low back with this not seem to help as well either. Patient rates her pain is a 10 on scale 10 at worst average and least is a 10 today. Patient scribes pain is aching sharp cramping sometimes stabbing and unbearable and can be severe. Physical Exam: VS: Blood pressure is 146/70 pulse 79 respirations 16 temperature is 90.6 F height is 5 feet 2 inches weight is 149 pounds PE: PHYSICAL EXAMINATION: GENERAL: The patient is awake, alert, oriented, appropriate, very pleasant in demeanor HEENT: Shows normocephalic, atraumatic. Extraocular movements are intact and symmetrical. Patient wearing eyeglasses. Oral cavity: Mucous membranes moist and pink. NECK: Shows anterior throat supple without palpable lymphadenopathy noted. Swallow reflex symmetrical. CHEST: Shows normal on inspection. Breath sounds are clear bilaterally, distant no rales or rhonchi. HEART: Shows S1, S2 clear. No murmurs auscultated. ABDOMEN: Soft, nontender, nondistended, obese. No palpable organomegaly is noted. BACK: Shows spine grossly in the midline. Normal-appearing cervical lordotic curvature. There is slightly increased thoracic kyphosis, some minor flattening of the lumbar lordotic curvature. Lumbar paraspinous muscles show symmetrical on inspection, on palpation shows some moderate tenderness diffusely throughout the upper, middle and lower distribution of the paraspinous musculature, but without specific trigger points, without radiation of pain. The patient has good rotational motion of the lumbar spine, both laterally as well as extension and flexion without significant difficulty. Patient has significant tenderness over the inferior aspect of the sacrum with direct palpation as well as the sacrococcygeal ligament and on the coccyx itself excruciating be painful and patient withdrawing from the examining hand but without specific radiation. EXTREMITIES: Lower extremities show deep tendon reflexes 2+ in the patellar and tendo calcaneus tendons. Motor exam is 5 on a scale of 5 with right dorsiflexion, extension, quadriceps and hamstring flexion and 5/5 on the left. Peripheral pulses are 1 posterior tibial. No peripheral edema is noted bilaterally. Lower extremities are warm and dry. SKIN: Shows warm and dry, good turgor. No edema. No sores, rashes or bruising throughout. Procedure: Procedure: Options were discussed with the patient. Patient chart reviews her current medication regimen updated current review of systems updated today as well. We will preauthorize patient for sacrococcygeal ligament injection she did very well with the last procedure and the pain returning now in the inferior aspect of the sacrum and the coccyx as previously. Patient continue with stretching strength exercises daily as well as oral analgesics and we will prescribe Medrol Dosepak patient was given instructions well side effects aware with the medication. Patient will follow up once preauthorization is obtained and will plan on sacrococcygeal ligament injection with fluoroscopic guidance at that time. Medication Injected: Med Injected: None Condition at Discharge: Condition at Discharge: Condition at discharge is stable. VANDANA DYSON MD Aug 25, 2021 11:01
== END | disposition home or self-care (01) ==
LOC: PNCL 10:24
PROVIDERS: ATTEND Anesthesiology
DX: M53.3 Sacrococcygeal disorders, not elsewhere classified (principal); I25.10 Atherosclerotic heart disease of native coronary artery without angina pectoris; E78.00 Pure hypercholesterolemia, unspecified; K21.9 Gastro-esophageal reflux disease without esophagitis; I12.9 Hypertensive chronic kidney disease with stage 1 through stage 4 chronic kidney disease, or unspecified chronic kidney disease; E11.22 Type 2 diabetes mellitus with diabetic chronic kidney disease; N18.30 Chronic kidney disease, stage 3 unspecified; M81.0 Age-related osteoporosis without current pathological fracture; Z98.51 Tubal ligation status; Z98.890 Other specified postprocedural states; Z79.899 Other long term (current) drug therapy; Z79.82 Long term (current) use of aspirin; Z79.4 Long term (current) use of insulin
CPT/HCPCS: 99212; G0463

== ENCOUNTER → 2021-09-08 | Outpatient (CLI) | payer MEDICARE ==
[2020-12-23 10:05] VITALS: BP 145/74
[~2021-09-08] MED LIST changes: +BUPIVACAINE MPF 0.25% 10 ML VIAL. ONE; +IOHEXOL 180 MG/ML 10 ML VIAL. ONE; +methylPREDNISolone ACETATE 80 MG/ML VIAL. ONE
--- NOTE | 2021-09-08 10:05 | PDOC ---
Progress Note - Pain Clinic Date of Service: DOS: DATE: 09/08/21 TIME: 10:01 Diagnosis: Dx: Coccygodynia History or Present Illness: HPI: 75-year-old female returns for follow-up status post sacrococcygeal ligament injection last seen March 23, 2021. Patient did very well near 100% improvement patient reports the pain returning and we had to preauthorize her for injection today patient reports still pain in the base of the tailbone and into the coccyx worse with sitting prolonged standing changing positions patient reports that it generally does not radiate into the back or lower extremities patient was aching and constant with pressure and sitting especially. Patient reports no new motor or sensory deficits no bowel or bladder incontinence patient reports occasionally she will have pain into the gluteus bilaterally but mostly he has been fairly well localized into the tailbone itself. Patient reports a 9 on scale 10 is worst least and average is a 9 today. Patient reports no bowel or bladder incontinence. Physical Exam: VS: Blood pressure is 151/83 pulse 85 respirations are 16 temperature is 98.6 F height is 5 feet 2 inches weight is 148 pounds PE: PHYSICAL EXAMINATION: GENERAL: The patient is awake, alert, oriented, appropriate, very pleasant in demeanor HEENT: Shows normocephalic, atraumatic. Extraocular movements are intact and symmetrical. Oral cavity: Mucous membranes moist and pink. NECK: Shows anterior throat supple without palpable lymphadenopathy noted. Swallow reflex symmetrical. CHEST: Shows normal on inspection. Breath sounds are clear bilaterally, distant but no rales or rhonchi auscultated. HEART: Shows S1, S2 clear. No murmurs auscultated. ABDOMEN: Soft, nontender, nondistended, obese. No palpable organomegaly is noted. BACK: Shows spine grossly in the midline. Normal-appearing cervical lordotic curvature. There is slightly increased thoracic kyphosis, some minor flattening of the lumbar lordotic curvature. Lumbar paraspinous muscles show symmetrical on inspection, on palpation shows some moderate tenderness diffusely throughout the upper, middle and lower distribution of the paraspinous muscles, but without specific trigger points, without radiation of pain. The patient has good rotational motion of the lumbar spine, both laterally as well as extension and flexion without significant difficulty. No tenderness over the spinous processes, sacrum or sacroiliac regions. Patient has significant tenderness over the inferior aspect of the sacrum and to the coccyx very very tender with even light palpation over the sacrococcygeal ligament region. Patient demonstrates no radiation. EXTREMITIES: Lower extremities show deep tendon reflexes 2+ in the patellar and tendo calcaneus tendons. Motor exam is 5 on a scale of 5 with right dorsiflexion, extension, quadriceps and hamstring flexion and []/5 on the left. Peripheral pulses are 1 posterior tibial. No peripheral edema is noted bilaterally. Lower extremities are warm and dry. SKIN: Shows warm and dry, good turgor. No edema. No sores, rashes or bruising throughout. Procedure: Procedure: Options were discussed with patient. Patient chart was reviewed as her current medication regimen updated current review of systems updated today as well. We will proceed with sacrococcygeal ligament injection today with fluoroscopic guidance. Risk were discussed including not limited to bleeding infection possibility of intravascular injection sequelae spread of local anesthetic and numbness, side effects of steroid medications, and poor results regarding pain control. Patient understands wished to proceed. Patient will return to clinic in approximate 4 weeks for follow-up, was counseled as return appointment, activity level, and side effect to be aware of. Medication Injected: Med Injected: Patient in supine position under sterile prep and drape using C-arm fluoroscopic guidance patient's sacrococcygeal ligament was identified and using 1% lidocain e was anesthetized on the skin overlying the sacrococcygeal ligament. At this time, a 25-gauge needle 1/2 inch was used to enter the sacrococcygeal ligament with both AP and lateral views with the fluoroscopy without difficulty. At this time aspiration was noted to be negative and 0.5 cc of contrast was injected with good spread in the sacrococcygeal ligament without washout or uptake. At this time solution of 0.25% bupivacaine 2 cc and 80 mg Depo-Medrol was then injected. Needle was withdrawn and sterile bandage was applied. Patient tolerated the procedure well and had no complications. Condition at Discharge: Condition at Discharge: Condition at discharge is stable, patient tolerated procedure well and had no complications. VANDANA DYSON MD Sep 08, 2021 10:05
--- NOTE | 2021-09-08 10:06 | PDOC4 ---
Procedure Note: ICD 10 Code: ICD 10 Code: M53.3 Procedure Note: Patient was consented for sacrococcygeal ligament injection with fluoroscopic guidance. Risks discussed including but not limited to bleeding infection possibility of intravascular injection and sequelae, spread of local anesthetic and numbness, side effects of steroid medication, and exposure to fluoroscopy. Patient understands wished to proceed. Patient in supine position under sterile prep and drape using C-arm fluoroscopic guidance patient's sacrococcygeal ligament was identified and using 1% lidocaine was anesthetized on the skin overlying the sacrococcygeal ligament. At this time, a 25-gauge needle 1/2 inch was used to enter the sacrococcygeal ligament with both AP and lateral views with the fluoroscopy without difficulty. At this time aspiration was noted to be negative and 0.5 cc of contrast was injected with good spread in the sacrococcygeal ligament without washout or uptake. At this time solution of 0.25% bupivacaine 2 cc and 80 mg Depo-Medrol was then injected. Needle was withdrawn and sterile bandage was applied. Patient tolerated the procedure well and had no complications. VANDANA DYSON MD Sep 08, 2021 10:06
== END | disposition home or self-care (01) ==
LOC: PNCL 09:01
PROVIDERS: ATTEND Anesthesiology
DX: M53.3 Sacrococcygeal disorders, not elsewhere classified (principal); E78.00 Pure hypercholesterolemia, unspecified; I25.10 Atherosclerotic heart disease of native coronary artery without angina pectoris; K21.9 Gastro-esophageal reflux disease without esophagitis; M81.0 Age-related osteoporosis without current pathological fracture; I12.0 Hypertensive chronic kidney disease with stage 5 chronic kidney disease or end stage renal disease; N18.30 Chronic kidney disease, stage 3 unspecified; E11.22 Type 2 diabetes mellitus with diabetic chronic kidney disease; Z98.51 Tubal ligation status; Z98.890 Other specified postprocedural states; Z79.899 Other long term (current) drug therapy; Z79.84 Long term (current) use of oral hypoglycemic drugs; Z79.82 Long term (current) use of aspirin
CPT/HCPCS: 20605; 77002; J1040; J3490; Q9965

== ENCOUNTER → 2021-11-23 | Outpatient (CLI) | payer MEDICARE ==
[2020-12-23 10:05] VITALS: BP 145/74
[~2021-11-23] MED LIST changes: -BUPIVACAINE MPF 0.25% 10 ML VIAL. ONE; -IOHEXOL 180 MG/ML 10 ML VIAL. ONE; -methylPREDNISolone ACETATE 80 MG/ML VIAL. ONE
--- NOTE | 2021-11-24 10:09 | KCIC ---
EXAMINATION: MRI LEFT SHOULDER WITHOUT IV CONTRAST CLINICAL HISTORY: Left shoulder pain and limited range of motion. TECHNIQUE: Multiplanar multisequential images obtained through the shoulder without intravenous contr ast. COMPARISON: Left shoulder radiographs 11/20/2021 FINDINGS: TENDONS: - Supraspinatus: Poorly defined interstitial tearing at the footplate and moderate tendinosis without definite full-thickness tear. - Infraspinatus: Mild tendinosis. - Subscapularis: Within normal limits. - Teres Minor: Within normal limits. - Biceps Tendon: Long head biceps tendon intact and appropriately located. MUSCLES: Muscle bulk and signal intensity are within normal limits. LABRUM: Posterior labral degeneration without discrete tear. GLENOHUMERAL JOINT: - Joint Fluid: No joint effusion or synovitis. - Cartilage: No full-thickness chondral defect. ACROMIOCLAVICULAR JOINT: Mild to moderate hypertrophic degenerative changes. BONES/MARROW: No evidence of acute fracture or suspicious marrow replacing process. OTHER: Mild fluid in the subacromial/subdeltoid bursa. IMPRESSION: Poorly defined interstitial tearing in the supraspinatus tendon and mild to moderate rotator cuff ten dinosis as described. No full-thickness rotator cuff tear. Electronically signed by: Deep Mccarthy DO (11/24/2021 10:07 AM) [id number]
== END ==
LOC: KCIC MRI 14:12
PROVIDERS: ATTEND Orthopaedic Surgery Sports Medicine
DX: M19.012 Primary osteoarthritis, left shoulder (principal); M75.82 Other shoulder lesions, left shoulder; M25.512 Pain in left shoulder
CPT/HCPCS: 73221

== ENCOUNTER → 2022-01-23 | Outpatient (CLI) | payer MEDICARE ==
[2020-12-23 10:05] VITALS: BP 145/74
[~2022-01-23] MED LIST changes: +BUPIVACAINE MPF 0.25% 10 ML VIAL. ONE; +DEXAMETHASONE PRES.FREE 10 MG/ML VIAL. ONE; +IOHEXOL 180 MG/ML 10 ML VIAL. ONE
--- NOTE | 2022-01-23 14:51 | PDOC ---
Progress Note - Pain Clinic Date of Service: DOS: DATE: 01/23/22 TIME: 14:46 Diagnosis: Dx: Coccygodynia (M53.3) History or Present Illness: HPI: 76-year-old female returns last seen September 08/2021. Patient did very well after sacrococcygeal ligament injection. Pain improved by approximate 90%. Patient reports pain beginning to return now but is different now that it is going up into the tailbone more than distal to the coccyx [place] patient reports is most notable with sitting and changing positions and prolonged sitting but not in her car with driving does not seem to bother the pain in the tailbone or the sacrum or not exacerbated patient reports it can be severe worse with getting up from seated position as well but standing the pain is fairly well controlled patient reports mostly with sitting but does awaken her from sleep occasionally not most nights patient reports no loss of motor function notes radiation to the lower extremities but now the pain radiating up into the tailbone more into the low back even at times. Patient reports her pain is a 10 on scale 10 is worst least and average over the past week and is a 10 today. Patient reports no loss of motor function no bowel or bladder incontinence patient has been taking [id number] oral Gesic such as Tylenol and occasionally ibuprofen but neither of which does decrease the pain significantly. We did discuss some options patient does have Voltaren cream at home and we suggested trying this if the pain returns significantly on the coccyx itself just a very small amount. Physical Exam: VS: Blood pressure is 134/81 pulse 78 respirations 16 temperature 98.3 F weight is 146 pounds. PE: PHYSICAL EXAMINATION: GENERAL: The patient is awake, alert, oriented, appropriate, very pleasant in demeanor HEENT: Shows normocephalic, atraumatic. Extraocular movements are intact and symmetrical. Patient wearing eyeglasses. Oral cavity: Mucous membranes moist and pink. NECK: Shows anterior throat supple without palpable lymphadenopathy noted. Swallow reflex symmetrical. CHEST: Shows normal on inspection. Breath sounds are clear bilaterally, no rales rhonchi or wheezes auscultated. HEART: Shows S1, S2 clear. No murmurs auscultated. ABDOMEN: Soft, nontender, nondistended. No palpable organomegaly is noted. BACK: Shows spine grossly in the midline. Normal-appearing cervical lordotic curvature. There is mildly increased thoracic kyphosis, some minor flattening of the lumbar lordotic curvature. Lumbar paraspinous muscles show symmetrical on inspection, on palpation shows some moderate tenderness diffusely throughout the upper, middle and lower distribution of the paraspinous muscles, but without specific trigger points, without radiation of pain. The patient has good rotational motion of the lumbar spine, both laterally as well as extension and flexion without significant difficulty. Patient has significant tenderness over the inferior and mid sacrum as well as over the coccyx with significant severe pain with palpation over the sacrococcygeal junction. EXTREMITIES: Lower extremities show deep tendon reflexes 2+ in the patellar and tendo calcaneus tendons. Motor exam is 5 on a scale of 5 with right dorsiflexion, extension, quadriceps and hamstring flexion and 5/5 on the left. Peripheral pulses are 1 posterior tibial. No peripheral edema is noted bilaterally. Lower extremities are warm and dry to touch, equal in color and appearance. SKIN: Shows warm and dry, good turgor. No edema. No sores, rashes or bruising throughout. Procedure: Procedure: Options discussed with the patient. Patient's old chart was reviewed as her current medication regimen updated current review of systems updated today as well. We will proceed with a sacrococcygeal ligament traction today with fluoroscopic guidance. Risk discussed including not limited to bleeding infection possibility of intravascular injection sequelae spread of local anesthetic numbness side effects steroid medications post arthroscopy portals regarding pain control. Patient understands wished to proceed. Patient return to the clinic in approximate 4 weeks for follow-up, was counseled as to return appointment, activity level, and side effects to be aware of. Medication Injected: Med Injected: Patient in supine position under sterile prep and drape using C-arm fluoroscopic guidance patient's sacrococcygeal ligament was identified and using 1% lidocaine was anesthetized on the skin overlying the sacrococcygeal ligament. This time a 25-gauge needle 1/2 inch was used to enter the sacrococcygeal ligament with both AP and lateral views with the fluoroscopy without difficulty. At this time aspiration was noted to be negative and 0.5 cc of contrast was injected with good spread in the sacrococcygeal ligament without washout or uptake. At this time solution of 0.25% bupivacaine 2 cc and 10 mg dexamethasone was then injected. Needle was withdrawn and sterile bandage was applied. Patient tolerated the procedure well and had no complications. Condition at Discharge: Condition at Discharge: Condition at discharge is stable, patient tolerated the procedure well and had no complications. VANDANA DYSON MD Jan 23, 2022 14:51
--- NOTE | 2022-01-23 14:52 | PDOC4 ---
Procedure Note: ICD 10 Code: ICD 10 Code: M53.3 Procedure Note: Patient was consented for sacrococcygeal ligament injection with fluoroscopic guidance. Risks discussed including but not limited to bleeding infection possibility of intravascular injection and sequelae spread of local anesthetic and numbness side effects steroid medication exposure fluoroscopy and poor results regarding pain control. Patient understands wished to proceed. Patient in prone position under sterile prep and drape using C-arm fluoroscopic guidance patient's sacrococcygeal ligament was identified and using 1% lidocaine was anesthetized on the skin overlying the sacrococcygeal ligament. This time a 25-gauge needle 1/2 inch was used to enter the sacrococcygeal ligament with both AP and lateral views with the fluoroscopy without difficulty. At this time aspiration was noted to be negative and 0.5 cc of contrast was injected with good spread in the sacrococcygeal ligament without washout or uptake. At this time solution of 0.25% bupivacaine 2 cc and 10 mg dexamethasone was then injected. Needle was withdrawn and sterile bandage was applied. Patient tolerated the procedure well and had no complications. VANDANA DYSON MD Jan 23, 2022 14:52
== END | disposition home or self-care (01) ==
LOC: PNCL 13:33
PROVIDERS: ATTEND Anesthesiology
DX: M53.3 Sacrococcygeal disorders, not elsewhere classified (principal); I25.10 Atherosclerotic heart disease of native coronary artery without angina pectoris; E78.00 Pure hypercholesterolemia, unspecified; K21.9 Gastro-esophageal reflux disease without esophagitis; I12.9 Hypertensive chronic kidney disease with stage 1 through stage 4 chronic kidney disease, or unspecified chronic kidney disease; N18.30 Chronic kidney disease, stage 3 unspecified; M81.0 Age-related osteoporosis without current pathological fracture; Z98.51 Tubal ligation status; Z79.82 Long term (current) use of aspirin; Z79.4 Long term (current) use of insulin; Z79.899 Other long term (current) drug therapy; Z98.890 Other specified postprocedural states
CPT/HCPCS: 20605; 77002; J1100; J3490; Q9965

== ENCOUNTER → 2022-02-19 | Outpatient (CLI) | payer MEDICARE ==
[2020-12-23 10:05] VITALS: BP 145/74
--- NOTE | 2022-02-19 15:26 | PDOC ---
Progress Note - Pain Clinic Date of Service: DOS: DATE: 02/19/22 TIME: 15:22 Diagnosis: Dx: Coccygodynia History or Present Illness: HPI: 76-year-old female returns for follow-up status post sacrococcygeal joint injection most recently January 23, 2022. Patient initially had done very well with these started back in February 2021 with 100% improvement in the 90% improvement after that over the last injection had very minimal improvement patient reports still significant pain in the end of the tailbone worse with sitting and healy ging positions walking better with laying down and with standing patient reports is getting worse with time the last injection did not seem to help as much as the first 2 had and patient is somewhat frustrated by the persistent pain. Patient reports aching pain that can be severe again especially with sitting and changing position patient rates as a 10 on scale 10 at all times over the last week at worst least and average is a 10 today. Patient reports no loss of motor function no radiation to the lower extremities or elsewhere and has significant pain in the tailbone and the inferior aspect of the sacrum itself. Physical Exam: VS: Blood pressure is 137/74 pulse 73 respirations are 18 temperature 98.1 F weight is 149 pounds PE: PHYSICAL EXAMINATION: GENERAL: The patient is awake, alert, oriented, appropriate, very pleasant in demeanor HEENT: Shows normocephalic, atraumatic. Extraocular movements are intact and symmetrical. Patient wearing eyeglasses. Oral cavity: Mucous membranes moist and pink. NECK: Shows anterior throat supple without palpable lymphadenopathy noted. Sw allow reflex symmetrical. CHEST: Shows normal on inspection. Breath sounds are clear bilaterally. HEART: Shows S1, S2 clear. No murmurs auscultated. ABDOMEN: Soft, nontender, nondistended. No palpable organomegaly is noted. BACK: Shows spine grossly in the midline. Normal-appearing cervical lordotic curvature. There is slightly increased thoracic kyphosis, some minor flattening of the lumbar lordotic curvature. Lumbar paraspinous muscles show symmetrical on inspection, on palpation shows some moderate tenderness diffusely throughout the upper, middle and lower distribution of the paraspinous muscles bilaterally and also into the lower thoracic paraspinous musculature, firm and tender, but without specific trigger points, without radiation of pain. The patient has good rotational motion of the lumbar spine, both laterally as well as extension and flexion without significant difficulty. Significant tenderness over the inferior aspect of the sacrum and the superior aspect of the coccyx with very significant tenderness with palpation over the sacrococcygeal junction. No radiation is demonstrated. EXTREMITIES: Lower extremities show deep tendon reflexes 2+ the patellar and tendo calcaneus tendons. Motor exam is 5 on a scale of 5 with right dorsiflexion, extension, quadriceps and hamstring flexion and 5/5 on the left. Peripheral pulses are 1+ posterior tibial. No peripheral edema is noted bilaterally. Lower extremities are warm and dry. SKIN: Shows warm and dry, good turgor. No edema. No sores, rashes or bruising throughout. Procedure: Procedure: Options discussed with patient. Patient's old chart was reviewed as her current medication regimen updated current review of systems updated today as well. We will proceed with a sacrococcygeal joint injection today with fluoroscopic guidance. Risks discussed including but not limited to bleeding infection possibility of intravascular injection sequelae spread local anesthetic numbness side effects steroid medication exposure fluoroscopy and portals regarding pain control. Patient understands wished to proceed. Patient will return to the clinic in approximately 2 weeks for follow-up, was counseled as to return appointment, activity level, and side effects to be aware of. Medication Injected: Med Injected: Patient in prone position under sterile prep and drape using C-arm fluoroscopic guidance patient's sacrococcygeal ligament was identified and using 1% lidocaine was anesthetized on the skin overlying the sacrococcygeal ligament. This time a 25-gauge needle 1/2 inch was used to enter the sacrococcygeal ligament with both AP and lateral views with the fluoroscopy without difficulty. At this time aspiration was noted to be negative and 0.5 cc of contrast was injected with good spread in the sacrococcygeal ligament without washout or uptake. At this time solution of 0.25% bupivacaine and 20 milligrams dexamethasone was then injected. Needle was withdrawn and sterile bandage was applied. Patient tolerated the procedure well and had no complications. Condition at Discharge: Condition at Discharge: Condition at discharge stable, patient tolerated the procedure well and had no complications. VANDANA DYSON MD Feb 19, 2022 15:26
--- NOTE | 2022-02-19 15:27 | PDOC4 ---
Procedure Note: ICD 10 Code: ICD 10 Code: M53.3 Procedure Note: Patient was consented for sacrococcygeal ligament injection with fluoroscopic guidance. Risks discussed including but not limited to bleeding infection possibility of intravascular injection sequelae spread local anesthetic numbness side effects steroid medication exposure fluoroscopy and poor results regarding pain control. Patient understands wishes to proceed. Patient in prone position under sterile prep and drape using C-arm fluoroscopic guidance patient's sacrococcygeal ligament was identified and using 1% lidocaine was anesthetized on the skin overlying the sacrococcygeal ligament. This time a 25-gauge needle 1/2 inch was used to enter the sacrococcygeal ligament with both AP and lateral views with the fluoroscopy without difficulty. At this time aspiration was noted to be negative and 0.5 cc of contrast was injected with good spread in the sacrococcygeal ligament without washout or uptake. At this time solution of 0.25% bupivacaine and 20 milligrams dexamethasone was then injected. Needle was withdrawn and sterile bandage was applied. Patient tolerated the procedure well and had no complications. VANDANA DYSON MD Feb 19, 2022 15:27
== END | disposition home or self-care (01) ==
LOC: PNCL 14:19
PROVIDERS: ATTEND Anesthesiology
DX: M53.3 Sacrococcygeal disorders, not elsewhere classified (principal); I25.10 Atherosclerotic heart disease of native coronary artery without angina pectoris; E78.00 Pure hypercholesterolemia, unspecified; I12.9 Hypertensive chronic kidney disease with stage 1 through stage 4 chronic kidney disease, or unspecified chronic kidney disease; N18.30 Chronic kidney disease, stage 3 unspecified; E11.22 Type 2 diabetes mellitus with diabetic chronic kidney disease; M81.0 Age-related osteoporosis without current pathological fracture; K21.9 Gastro-esophageal reflux disease without esophagitis; J45.909 Unspecified asthma, uncomplicated; Z98.51 Tubal ligation status; Z98.890 Other specified postprocedural states; Z79.82 Long term (current) use of aspirin; Z79.4 Long term (current) use of insulin; Z79.899 Other long term (current) drug therapy; Z87.891 Personal history of nicotine dependence
CPT/HCPCS: 20605; 77002; J1100; J3490; Q9965